=== PATIENT | male | born 1975 | race Caucasian/White ===

== ENCOUNTER 2017-08-13 14:27 | Emergency (ER) | payer OTHER ==
[2017-08-13] MEDS: predniSONE 20 MG TAB PO ×2 (15:23)
[2017-08-13] MEDS: PERCOCET 5MG/325MG TAB PO ×2 (15:23)
[2017-08-13] MEDS: METHOCARBAMOL 750 MG TAB PO ×2 (15:23)
[2017-08-13] MEDS: MORPHINE 10 MG/ML 1ML VIAL (J2270) IM ×2 (16:41)
== END 2017-08-13 18:04 | disposition home or self-care (01) ==
LOC: M ED 14:27
DX: S33.5XXA Sprain of ligaments of lumbar spine, initial encounter (principal); X50.9XXA Other and unspecified overexertion or strenuous movements or postures, initial encounter; Y92.59 Other trade areas as the place of occurrence of the external cause; Y99.0 Civilian activity done for income or pay; F17.210 Nicotine dependence, cigarettes, uncomplicated
CPT/HCPCS: J2270

== ENCOUNTER → 2018-07-07 | Outpatient (CLI) | payer OTHER ==
[~2018-07-07] MED LIST: IBUP-1022 PO; PERC5TAB12 PO
[2018-07-07 13:47] LABS: BASO # 0.1 10^3/uL (0.0-0.2); BASO % 0.7 % (0.0-1.0); EOS # 0.4 10^3/uL (0.0-0.50); HEMATOCRIT 47.3 % (42.0-52.0); HEMOGLOBIN 15.3 g/dl (13.5-17.5); LYMPH # 2.8 10^3/uL (1.5-4.5); LYMPH % 27.5 % (24.0-44.0); MEAN CORPUSCULAR HEMOGLOBIN 29.4 pg (27.0-33.0); MEAN CORPUSCULAR HGB CONC 32.3 g/dl (32.0-36.5); MONO # 0.7 10^3/uL (0.0-0.8); MONO % 6.9 % (0.0-5.0); NEUTROPHILS # 6.2 10^3/uL (1.8-7.7); NEUTROPHILS % 60.1 % (36.0-66.0); PLATELET COUNT, AUTOMATED 318 10^3/uL (150-450); WHITE BLOOD COUNT 10.3 10^3/uL (4.0-10.0)
[2018-07-07 14:00] LABS: ALBUMIN 4.5 GM/DL (3.2-5.2); ALT/SGPT 18 U/L (12-78); BILIRUBIN,TOTAL 0.4 MG/DL (0.2-1.0); BLOOD UREA NITROGEN 13 MG/DL (7-18); CALCIUM LEVEL 8.9 MG/DL (8.5-10.1); CARBON DIOXIDE LEVEL 27 MEQ/L (21-32); CHLORIDE LEVEL 108 MEQ/L (98-107); CHOLESTEROL LEVEL 190 MG/DL (<200); CHOLESTEROL RISK RATIO 3.584 (<5); FREE T4 1.06 NG/DL (0.76-1.46); GLOMERULAR FILTRATION RATE > 60.0 (>60); GLUCOSE, FASTING 89 MG/DL (70-100); HDL CHOLESTEROL 53 MG/DL (>40); LDL CHOLESTEROL 125 MG/DL (<100); NON-HDL-C 137 MG/DL; POTASSIUM SERUM 4.6 MEQ/L (3.5-5.1); SODIUM LEVEL 141 MEQ/L (136-145); TRIGLYCERIDES LEVEL 59 MG/DL (<150)
[2018-07-07 14:13] LABS: HEMOGLOBIN A1c 5.3 %
== END ==
LOC: M SMT 08:42
PROVIDERS: ATTEND Physician Assistant
DX: R35.0 Frequency of micturition (principal); Z13.29 Encounter for screening for other suspected endocrine disorder

== ENCOUNTER → 2018-12-19 | Outpatient (CLI) | payer OTHER ==
[2018-12-21 10:09] LABS: HEPATITIS A ANTIBODY IGM NEGATIVE (NEGATIVE); HEPATITIS B CORE ANTIBODY IGM NEGATIVE (NEGATIVE); HEPATITIS B SURFACE ANTIGEN NEGATIVE (NEGATIVE); HIV 1&2 SCREEN CENTAUR NEGATIVE (NEGATIVE)
[2018-12-22 00:07] LABS: HSV IgM TYPES 1&2 <0.91 Ratio (0.00-0.90); HSV TYPE I IgG SPECIFIC <0.91 index (0.00-0.90); HSV TYPE II IgG SPECIFIC <0.91 index (0.00-0.90)
== END ==
LOC: M WUC 16:38
PROVIDERS: ATTEND Physician Assistant
DX: Z11.3 Encounter for screening for infections with a predominantly sexual mode of transmission (principal)

== ENCOUNTER → 2018-12-19 | Outpatient (REF) | payer OTHER ==
[2018-12-19 20:29] LABS: CHLAMYDIA DNA AMPLIFICATION NEGATIVE (NEGATIVE); GC DNA AMPLIFICATION NEGATIVE (NEGATIVE)
== END ==
LOC: M LAB REF 18:20
PROVIDERS: ATTEND Physician Assistant
DX: R30.0 Dysuria (principal)

== ENCOUNTER → 2018-12-29 | Outpatient (REF) | payer OTHER | LOC: M LAB REF 16:56 | PROVIDERS: ATTEND Physician Assistant | DX: N34.1 Nonspecific urethritis (principal) ==

== ENCOUNTER → 2019-07-06 | Outpatient (REF) | payer OTHER ==
[2019-07-06 18:06] LABS: BASO % 0.5 % (0.0-1.0); EOS # 0.2 10^3/uL (0.0-0.5); EOS % 2.1 % (0.0-3.0); HEMATOCRIT 42.8 % (42.0-52.0); HEMOGLOBIN 13.9 g/dl (13.5-17.5); LYMPH # 2.3 10^3/uL (1.5-5.0); LYMPH % 30.6 % (24.0-44.0); MEAN CORPUSCULAR HEMOGLOBIN 29.4 pg (27.0-33.0); MEAN CORPUSCULAR HGB CONC 32.5 g/dl (32.0-36.5); MEAN CORPUSCULAR VOLUME 90.7 fl (80.0-96.0); MONO # 0.5 10^3/uL (0.0-0.8); MONO % 7.1 % (0.0-5.0); NEUTROPHILS # 4.5 10^3/uL (1.5-8.5); NEUTROPHILS % 59.3 % (36.0-66.0); PLATELET COUNT, AUTOMATED 294 10^3/uL (150-450); RED BLOOD COUNT 4.72 10^6/uL (4.30-6.10); WHITE BLOOD COUNT 7.6 10^3/uL (4.0-10.0)
[2019-07-06 18:13] LABS: ALBUMIN 4.7 GM/DL (3.2-5.2); ALT/SGPT 18 U/L (12-78); BILIRUBIN,TOTAL 0.5 MG/DL (0.2-1.0); BLOOD UREA NITROGEN 15 MG/DL (7-18); CARBON DIOXIDE LEVEL 29 MEQ/L (21-32); CHLORIDE LEVEL 104 MEQ/L (98-107); CREATININE FOR GFR 1.05 MG/DL (0.70-1.30); FREE T4 1.07 NG/DL (0.76-1.46); GLOMERULAR FILTRATION RATE > 60.0 (>60); GLUCOSE, FASTING 85 MG/DL (70-100); MAGNESIUM LEVEL 2.3 MG/DL (1.8-2.4); POTASSIUM SERUM 3.8 MEQ/L (3.5-5.1); SODIUM LEVEL 139 MEQ/L (136-145); TOTAL PROTEIN 7.8 GM/DL (6.4-8.2)
[2019-07-06 18:14] LABS: FOLATE 13.7 NG/ML; VITAMIN B12 LEVEL 496 PG/ML
[2019-07-08 15:07] LABS: ANTINUCLEAR ANTIBODIES DIRECT Negative (Negative); Lyme Disease IgG/IgM Antibodie <0.91 ISR (0.00-0.90); Lyme Disease IgM Ab Quantitati <0.80 index (0.00-0.79)
== END ==
LOC: M LABDRAW1 15:20
PROVIDERS: ATTEND Physician Assistant
DX: F45.8 Other somatoform disorders (principal)

== ENCOUNTER → 2019-07-11 | Outpatient (REF) | payer OTHER ==
[2019-07-11 13:44] LABS: CPK CREATINE PHOSPHOKINASE 208 U/L (39-308); FOLATE 14.3 NG/ML; RHEUMATOID FACTOR QUANT < 10.0 IU/ML (<15.0); TOTAL PROTEIN 7.7 GM/DL (6.4-8.2); VITAMIN B12 LEVEL 475 PG/ML
[2019-07-11 13:57] LABS: HEMOGLOBIN A1c 5.8 %
== END ==
LOC: M LABDRAW1 09:55
PROVIDERS: ATTEND Psychiatry & Neurology Neurology
DX: E53.8 Deficiency of other specified B group vitamins (principal); E11.42 Type 2 diabetes mellitus with diabetic polyneuropathy

== ENCOUNTER → 2019-12-25 | Outpatient (CLI) | payer OTHER | LOC: M LABSMTC 11:48 | PROVIDERS: ATTEND Family Medicine | DX: Z20.828 Contact with and (suspected) exposure to other viral communicable diseases (principal) ==

== ENCOUNTER → 2020-01-20 | Outpatient (CLI) | payer OTHER | LOC: M LABSMTC 11:31 | PROVIDERS: ATTEND Orthopaedic Surgery | DX: Z01.812 Encounter for preprocedural laboratory examination (principal); Z20.828 Contact with and (suspected) exposure to other viral communicable diseases ==

== ENCOUNTER → 2020-12-13 | Outpatient (CLI) | payer OTHER ==
--- NOTE | 2020-12-13 13:07 | REP ---
INDICATION: NICOTINE DEPEND W/ BLACK SPUTUM COUGH. COMPARISON: November 21, 2010. TECHNIQUE: Helical scanning is acquired. 3 mm axial images are generated. Coronal and sagittal MPR and coronal MIP images are generated. FINDINGS: Preliminary digital director of infection prevention radiograph is unremarkable. On axial CT images there is no evidence of pleural or pericardial effusion. No hilar or mediastinal mass or adenopathy is observed. There is a tiny left upper quadrant splenule. The visualized upper abdominal structures are otherwise unremarkable. There are 2 subcentimeter cysts in the liver. No bony destructive lesion is seen. No endobronchial lesion is appreciated. On lung window settings, there is a minimal linear density in the right middle lobe consistent with linear fibrosis. There is also a zone of minimal pleuroparenchymal fibrosis in the left base involving the lingula. The lung brunner are otherwise clear. No pulmonary nodule or mass lesion is observed. No infiltrate is seen. IMPRESSION: No active disease. Lung RADS category 1 findings. <Electronically signed by Topher Conde > 12/13/20 [id number]
== END ==
LOC: M PLAIMG 12:39
PROVIDERS: ATTEND Physician Assistant
DX: R05 Cough (principal); Z87.891 Personal history of nicotine dependence

== ENCOUNTER → 2020-12-13 | Outpatient (CLI) | payer OTHER ==
--- NOTE | 2020-12-13 11:39 | REP ---
INDICATION: RADILULOPATHY,LUMBOSACRAL REGION. COMPARISON: Comparison thoracic spine radiographs November 23, 2013. TECHNIQUE: Three views. FINDINGS: The thoracic vertebral body heights are preserved. Alignment is normal. There is mild discogenic spurring anteriorly in the lower thoracic and in 1 or 2 of the mid and upper thoracic vertebral bodies. Swimmer's lateral view shows minimal discogenic spurring in the lower cervical spine. Pedicles and posterior elements are intact. No paravertebral soft tissue mass is seen. IMPRESSION: Minimal degenerative disc changes. Otherwise negative thoracic spine radiographs. <Electronically signed by Topher Conde > 12/13/20 [id number]
--- NOTE | 2020-12-13 11:47 | REP ---
INDICATION: RADILULOPATHY,LUMBOSACRAL REGION. COMPARISON: Comparison radiographs November 23, 2013. TECHNIQUE: Seven views including upright lateral flexion extension views. FINDINGS: Lumbar vertebral body heights are preserved and alignment is normal. Flexion extension view show no subluxation or instability. There is mild discogenic spurring anteriorly at L3-4 and L4-5. Minimal discogenic spurring is noted at the T11-12 level as well. The L3-4 discogenic spurring is new when compared with the 2014 prior study. Pedicles and posterior elements are intact. Facet joints are normally aligned. Psoas margins are symmetric. The sacrum and the SI joints are unremarkable. A normal bowel gas pattern is appreciated. IMPRESSION: Minimal degenerative disc changes L3-4 and L4-5. Otherwise negative lumbar spine radiographs. <Electronically signed by Topher Conde > 12/13/20 [id number]
[2020-12-13 13:20] LABS: BASO # 0.1 10^3/uL (0.0-0.2); BASO % 0.8 % (0.0-1.0); EOS # 0.2 10^3/uL (0.0-0.5); EOS % 2.6 % (0.0-3.0); HEMATOCRIT 41.8 % (42.0-52.0); LYMPH # 2.4 10^3/uL (1.5-5.0); LYMPH % 30.6 % (24.0-44.0); MEAN CORPUSCULAR HEMOGLOBIN 29.9 pg (27.0-33.0); MEAN CORPUSCULAR HGB CONC 33.5 g/dl (32.0-36.5); MEAN CORPUSCULAR VOLUME 89.3 fl (80.0-96.0); MONO # 0.7 10^3/uL (0.0-0.8); MONO % 9.1 % (2.0-8.0); NEUTROPHILS # 4.3 10^3/uL (1.5-8.5); NEUTROPHILS % 56.4 % (36.0-66.0); PLATELET COUNT, AUTOMATED 296 10^3/uL (150-450); RED BLOOD COUNT 4.68 10^6/uL (4.30-6.10); WHITE BLOOD COUNT 7.7 10^3/uL (4.0-10.0)
[2020-12-13 13:43] LABS: ALBUMIN 4.2 GM/DL (3.2-5.2); ALT/SGPT 20 U/L (12-78); BILIRUBIN,TOTAL 0.6 MG/DL (0.2-1.0); BLOOD UREA NITROGEN 13 MG/DL (7-18); CALCIUM LEVEL 9.1 MG/DL (8.5-10.1); CARBON DIOXIDE LEVEL 25 MEQ/L (21-32); CHLORIDE LEVEL 108 MEQ/L (98-107); CHOLESTEROL LEVEL 223 MG/DL (<200); CHOLESTEROL RISK RATIO 3.779 (<5); GLOMERULAR FILTRATION RATE > 60.0 (>60); GLUCOSE, FASTING 90 MG/DL (70-100); HDL CHOLESTEROL 59 MG/DL (>40); LDL CHOLESTEROL 154 MG/DL (<100); NON-HDL-C 164 MG/DL; POTASSIUM SERUM 3.8 MEQ/L (3.5-5.1); SODIUM LEVEL 137 MEQ/L (136-145); TOTAL PROTEIN 7.1 GM/DL (6.4-8.2); TRIGLYCERIDES LEVEL 50 MG/DL (<150)
[2020-12-13 13:44] LABS: TOTAL 25(OH) VITAMIN D 17.4 NG/ML (30.0-100.0)
== END ==
LOC: M WUC 10:43
PROVIDERS: ATTEND Physician Assistant
DX: M51.34 Other intervertebral disc degeneration, thoracic region (principal); M51.36 Other intervertebral disc degeneration, lumbar region; Z13.220 Encounter for screening for lipoid disorders; Z13.29 Encounter for screening for other suspected endocrine disorder; M54.17 Radiculopathy, lumbosacral region

== ENCOUNTER → 2020-12-24 | Outpatient (CLI) | payer OTHER ==
[~2020-12-24] MED LIST changes: +OMEGA-3 1000MG CAPSULE ONE
--- NOTE | 2020-12-24 15:24 | REP ---
INDICATION: VERTEBRAL BONY SPURRING, RADICULOPATHY. Bilateral lower extremity radiculopathy. COMPARISON: Comparison MRI study of the thoracic spine is from [facility] dated October 20, 2017. Comparison radiographs of the thoracic spine are from December 13 2020. TECHNIQUE: Sagittal and axial T1 and T2-weighted scans are acquired in the usual fashion with and without fat saturation. Sequences include spin echo, turbo spin-echo, and STIR imaging sequences. FINDINGS: Thoracic vertebral body heights are preserved. Cortical and medullary bone signal intensity is normal. No fracture or collapse is seen. There is mild discogenic spurring anteriorly and to the right of midline at the T11-12 disc space. The T11-12 disc space is slightly narrowed. The other thoracic vertebral disc levels preserved in height and signal intensity. There is no evidence of focal thoracic disc protrusion at any level. Thoracic cord is normal in course, caliber, and signal intensity on T1 and T2 weighted scans. The central canal is again noted to be visualized in the upper thoracic spine unchanged from the 03/24/2018 prior study and is not felt to be dilated. No cord compressive lesion is seen. No neural foraminal lesion is appreciated. Tip of the conus medullaris is normal in position and appearance at L1. The degenerative disc changes at T11-12 are stable when compared with the October 20, 2017 prior study. IMPRESSION: Stable mild degenerative disc changes T11-12. Otherwise negative MRI thoracic spine. <Electronically signed by Topher Conde > 12/24/20 [id number]
--- NOTE | 2020-12-24 15:53 | REP ---
INDICATION: VERTEBRAL BONY SPURRING, RADICULOPATHY. COMPARISON: Comparison MRI study of the lumbar spine is from September 16, 2017. TECHNIQUE: Sagittal and axial T1 and T2-weighted scans are acquired in the usual fashion with and without fat saturation. Sequences include spin echo, turbo spin-echo, and STIR imaging sequences. FINDINGS: Incidental note is made of urine distended bladder in the pelvis at the time of scanning. Cortical and medullary bone signal intensity are normal in the lumbar spine. Vertebral body heights are preserved. Alignment is normal. Pedicles and posterior elements are intact. There is no evidence of spondylolysis or spondylolisthesis. The tip of the conus medullaris is normal in position and appearance at L1. No other extra vertebral abnormality is observed. Axial and sagittal images taken at L1-L2 show no evidence of disc protrusion, central canal stenosis, or foraminal narrowing. At L2-L3 posterior disc margin is also normal. At L3-L4, there is minimal narrowing of the disc and mild diffuse disc bulging is again noted At L4-5, there is mild disc bulging and decreased disc space height and signal intensity is again seen. This consistent with mild degenerative disc disease at the L4-5 level. There is mild right lateral disc bulging at the L4-5 level. This is unchanged. At the L5-S1 level there is facet hypertrophy bilaterally. There is central disc bulging. The central disc bulging appears a little more prominent on sagittal images today compared to the prior study. Neural foramina appear adequate. IMPRESSION: Mild degenerative disc changes at L4-5 and L5-S1 with disc bulging at these 2 levels. Minimal bulging and disc narrowing at L3-4. Right lateral and right foraminal disc bulging at L4-5. Mild distention of the urinary bladder noted incidentally. <Electronically signed by oTpher Conde > 12/24/20 [id number]
== END ==
LOC: M PLAIMG 13:55
PROVIDERS: ATTEND Physician Assistant
DX: M54.17 Radiculopathy, lumbosacral region (principal); M51.36 Other intervertebral disc degeneration, lumbar region; M51.37 Other intervertebral disc degeneration, lumbosacral region; M51.26 Other intervertebral disc displacement, lumbar region; M51.27 Other intervertebral disc displacement, lumbosacral region

== ENCOUNTER → 2021-11-19 | Outpatient (CLI) | payer OTHER ==
[~2021-11-19] MED LIST changes: -OMEGA-3 1000MG CAPSULE ONE
[2021-11-19 13:35] LABS: BASO % 0.5 % (0.0-1.0); EOS # 0.2 10^3/uL (0.0-0.5); EOS % 2.1 % (0.0-3.0); HEMATOCRIT 41.2 % (42.0-52.0); HEMOGLOBIN 13.9 g/dl (13.5-17.5); LYMPH # 2.1 10^3/uL (1.5-5.0); LYMPH % 24.6 % (24.0-44.0); MEAN CORPUSCULAR HEMOGLOBIN 30.8 pg (27.0-33.0); MEAN CORPUSCULAR HGB CONC 33.7 g/dl (32.0-36.5); MEAN CORPUSCULAR VOLUME 91.4 fl (80.0-96.0); MONO # 0.5 10^3/uL (0.0-0.8); MONO % 5.8 % (2.0-8.0); NEUTROPHILS # 5.8 10^3/uL (1.5-8.5); NEUTROPHILS % 66.8 % (36.0-66.0); PLATELET COUNT, AUTOMATED 292 10^3/uL (150-450); RED BLOOD COUNT 4.51 10^6/uL (4.30-6.10); WHITE BLOOD COUNT 8.6 10^3/uL (4.0-10.0)
[2021-11-19 14:22] LABS: ALBUMIN 4.2 GM/DL (3.2-5.2); ALT/SGPT 21 U/L (12-78); BILIRUBIN,TOTAL 0.8 MG/DL (0.2-1.0); BLOOD UREA NITROGEN 9 MG/DL (7-18); CALCIUM LEVEL 9.2 MG/DL (8.5-10.1); CARBON DIOXIDE LEVEL 27 MEQ/L (21-32); CHLORIDE LEVEL 106 MEQ/L (98-107); CHOLESTEROL LEVEL 186 MG/DL (<200); CHOLESTEROL RISK RATIO 2.735 (<5); CREATININE FOR GFR 0.93 MG/DL (0.70-1.30); GLOMERULAR FILTRATION RATE > 60.0 (>60); GLUCOSE, FASTING 103 MG/DL (70-100); HDL CHOLESTEROL 68 MG/DL (>40); LDL CHOLESTEROL 109 MG/DL (<100); NON-HDL-C 118 MG/DL; POTASSIUM SERUM 3.9 MEQ/L (3.5-5.1); SODIUM LEVEL 138 MEQ/L (136-145); TOTAL PROTEIN 7.2 GM/DL (6.4-8.2); TRIGLYCERIDES LEVEL 43 MG/DL (<150)
[2021-11-19 14:43] LABS: TOTAL 25(OH) VITAMIN D 25.7 NG/ML (30.0-100.0)
== END ==
LOC: M WUC 09:15
PROVIDERS: ATTEND Family Medicine
DX: E78.00 Pure hypercholesterolemia, unspecified (principal); E55.9 Vitamin D deficiency, unspecified